=== PATIENT | female | born 1980 | race Caucasian/White ===

== ENCOUNTER 2016-12-18 19:06 | Observation (INO) | payer MEDICAID ==
[2016-12-18] MEDS ORDERED: ONDANSETRON DISINTEGRATING 4 MG TAB PO ONE (19:16)
[2016-12-18] MEDS ORDERED: NS 1,000 ML IV ONE ×2 (19:28)
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
[2016-12-18] MEDS ORDERED: ONDANSETRON 4 MG/2 ML VIAL ONE (19:37)
[2016-12-18 19:48] LABS: % IMMATURE GRANULYOCYTES 0.6 % (0.0-1.1); ABSOLUTE IMMATURE GRANULOCYTES 0.09 10^3/uL (0.00-0.10); ADD DIFF? NO; ADD MORPH? NO; ADD SCAN? NO; ATYPICAL LYMPHOCYTE FLAG 10 (0-99); FRAGMENT RBC FLAG 0 (0-99); HEMOGLOBIN 15.6 g/dL (12.6-16.3); LEFT SHIFT FLG 0 (0-99); LIPEMIA HEMOLYSIS FLAG 90 (0-99); MEAN CELL HEMOGLOBIN 30.9 pg (27.9-34.1); MEAN CELL HEMOGLOBIN CONCENTR. 34.7 g/dL (32.4-36.7); MEAN CELL VOLUME 89.1 fL (81.5-99.8); MEAN PLATELET VOLUME 8.6 fL (8.7-11.7); PLATELET CLUMPS FLAG 0 (0-99); PLATELET COUNT 449 10^3/uL (150-400); RED BLOOD CELL COUNT 5.05 10^6/uL (4.18-5.33)
[2016-12-18 19:57] LABS: ANION GAP 12 mEq/L (8-16); CALCIUM 8.6 mg/dL (8.5-10.4); CARBON DIOXIDE 20 mEq/l (22-31); CHLORIDE 109 mEq/L (97-110); CREATININE 0.7 mg/dL (0.6-1.0); GLOMERULAR FILTRATION RATE > 60; GLUCOSE 93 mg/dL (70-100); SODIUM 141 mEq/L (134-144)
[2016-12-18 20:43] LABS: COLOR YELLOW; LEUKOCYTE ESTERASE,URINE 3+ (NEGATIVE); NITRITE,URINE NEGATIVE (NEGATIVE)
[2016-12-18 20:49] LABS: BACTERIA TRACE /hpf (NONE SEEN); MUCUS TRACE /lpf (NONE-1+); RBC,URINE 15-25 /hpf (0-3); WBC,URINE 50-182 /hpf (0-3)
[2016-12-18] MEDS ORDERED: ONDANSETRON 4 MG/2 ML VIAL IVP ONE (20:50)
[2016-12-18] MEDS ORDERED: ONDANSETRON 4MG PREPACK#2 BTL TAKEHOME ONE (20:55)
[2016-12-18] MEDS ORDERED: METOCLOPRAMIDE 10 MG/2 ML VIAL IVP ONE (22:08)
[2016-12-18] MEDS ORDERED: METOCLOPRAMIDE 10 MG/2 ML VIAL IVP PRN (22:30)
[2016-12-18] MEDS ORDERED: TEMAZEPAM 15 MG CAP PO PRN (22:30)
[2016-12-18] MEDS ORDERED: PROMETHAZINE HCL 25 MG/ML INJ IVP PRN (22:30)
[2016-12-18] MEDS ORDERED: ONDANSETRON DISINTEGRATING 4 MG TAB PO PRN (22:30)
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
[2016-12-18] MEDS: NS 1,000 ML IV SCH (23:26)
[2016-12-19] MEDS: ONDANSETRON 4 MG/2 ML VIAL IVP PRN (03:21)
[2016-12-19] MEDS: ACETAMINOPHEN 325 MG TAB PO PRN ×2 (03:22→07:48)
[2016-12-19 05:16] LABS: % IMMATURE GRANULYOCYTES 0.6 % (0.0-1.1); ABSOLUTE IMMATURE GRANULOCYTES 0.06 10^3/uL (0.00-0.10); ADD DIFF? NO; ADD MORPH? NO; ADD SCAN? NO; ATYPICAL LYMPHOCYTE FLAG 10 (0-99); FRAGMENT RBC FLAG 0 (0-99); HEMATOCRIT 38.9 % (38.0-47.0); LEFT SHIFT FLG 0 (0-99); LIPEMIA HEMOLYSIS FLAG 80 (0-99); MEAN CELL HEMOGLOBIN CONCENTR. 33.4 g/dL (32.4-36.7); MEAN CELL VOLUME 92.8 fL (81.5-99.8); MEAN PLATELET VOLUME 8.6 fL (8.7-11.7); PLATELET CLUMPS FLAG 10 (0-99); PLATELET COUNT 317 10^3/uL (150-400); RED BLOOD CELL COUNT 4.19 10^6/uL (4.18-5.33); RED CELL DISTRIBUTION WIDTH 13.1 % (11.5-15.2)
[2016-12-19 05:26] LABS: ANION GAP 9 mEq/L (8-16); CALCIUM 7.2 mg/dL (8.5-10.4); CARBON DIOXIDE 18 mEq/l (22-31); CHLORIDE 111 mEq/L (97-110); CREATININE 0.7 mg/dL (0.6-1.0); GLOMERULAR FILTRATION RATE > 60; GLUCOSE 96 mg/dL (70-100); POTASSIUM 3.7 mEq/L (3.5-5.2); SODIUM 138 mEq/L (134-144)
[2016-12-19] MEDS ORDERED: SUMAtriptan 6 MG/0.5 ML VIAL SC ONE (12:16)
[2016-12-19] MEDS: NS 1,000 ML IV SCH (15:45)
--- NOTE | 2016-12-19 15:55 | HOSPPROG ---
Hospitalist Progress Note Assessment/Plan: 36 yo F w pyelo vs uti uti: ceftriaxone day 2 sepsis: no migraine: imitrex nausea: IV phenergan proph: add lmwh dispo: inpt Subjective: states still nauseated. eating crackers. c/o b/l back pain Objective: Vital Signs Temp Pulse Resp BP Pulse Ox 36.6 C 64 16 112/65 95 12/19/16 07:24 12/19/16 07:24 12/19/16 07:24 12/19/16 07:24 12/19/16 07:24 Laboratory Results 12/19/16 05:01 12/19/16 05:01 12/18/16 12/19/16 12/20/16 05:59 05:59 05:59 Intake Total 2100 Balance 2100 - Physical Exam Constitutional: no apparent distress, appears nourished Eyes: PERRL, anicteric sclera Ears, Nose, Mouth, Throat: moist mucous membranes, hearing normal Cardiovascular: regular rate and rhythym, no murmur, rub, or gallop Respiratory: no respiratory distress, no rales or rhonchi Gastrointestinal: normoactive bowel sounds, soft, non-tender abdomen, no palpable masses Genitourinary: no bladder fullness, No huffman in urethra Skin: warm, normal color Musculoskeletal: full muscle strength, no muscle tenderness ICD10 Worksheet Patient Problems: Problems Problem Status Onset Acute pyelonephritis Acute
[2016-12-19] MEDS ORDERED: PROMETHAZINE HCL 25 MG TAB PO PRN (15:56)
[2016-12-19] MEDS: FAMOTIDINE 20 MG TAB PO SCH (16:17)
[2016-12-19] MEDS: ENOXAPARIN 40 MG/0.4 ML SYR SC SCH (16:18)
[2016-12-19] MEDS: KETOROLAC 30 MG/1 ML SDV IVP PRN (18:11)
[2016-12-19] MEDS: HYDROmorphONE/DILAUDID 1 MG/ML SYR IVP PRN ×2 (18:32→22:39)
[2016-12-19] MEDS ORDERED: FAMOTIDINE 20 MG TAB PO SCH (21:00)
[2016-12-20] MEDS ORDERED: PROMETHAZINE HCL 12.5 MG SUPPR PR SCH
[2016-12-20] MEDS ORDERED: CEPHALEXIN 500 MG CAP PO SCH
[2016-12-20] MEDS ORDERED: PROMETHAZINE HCL 25 MG TAB PO SCH
[2016-12-20] MEDS ORDERED: FAMOTIDINE 20 MG TAB PO SCH
[2016-12-20] MEDS: KETOROLAC 30 MG/1 ML SDV IVP PRN ×2 (02:38→08:02)
[2016-12-20] MEDS: HYDROmorphONE/DILAUDID 1 MG/ML SYR IVP PRN (02:39)
[2016-12-20 03:43] VITALS: PULSE 55
[2016-12-20] MEDS: ONDANSETRON 4 MG/2 ML VIAL IVP PRN ×2 (03:44→08:02)
[2016-12-20 07:44] VITALS: BP 93/57; RESP 16; TEMP 97.3; O2SAT 94
[2016-12-20] MEDS: ENOXAPARIN 40 MG/0.4 ML SYR SC SCH (08:02)
[2016-12-20] MEDS: FAMOTIDINE 20 MG TAB PO SCH (08:03)
--- NOTE | 2016-12-20 09:05 | HOSPPROG ---
Hospitalist Progress Note Assessment/Plan: 36 yo F w pyelo vs uti uti: ceftriaxone day 3 sepsis: no migraine: imitrex nausea: IV phenergan proph: add lmwh home today > 30 minutes Subjective: afebrile Objective: Vital Signs Temp Pulse Resp BP Pulse Ox 36.3 C 55 L 16 93/57 L 94 12/20/16 07:40 12/20/16 03:39 12/20/16 07:40 12/20/16 07:40 12/20/16 07:40 Laboratory Results 12/19/16 05:01 12/19/16 05:01 12/19/16 12/20/16 12/21/16 05:59 05:59 05:59 Intake Total 2100 550 Output Total 200 Balance 2100 350 - Physical Exam Constitutional: no apparent distress, appears nourished Eyes: PERRL, anicteric sclera Ears, Nose, Mouth, Throat: moist mucous membranes, hearing normal Cardiovascular: regular rate and rhythym, no murmur, rub, or gallop Respiratory: no respiratory distress, no rales or rhonchi Gastrointestinal: normoactive bowel sounds, soft, non-tender abdomen Genitourinary: no bladder fullness, No huffman in urethra Skin: warm ICD10 Worksheet Patient Problems: Problems Problem Status Onset Acute pyelonephritis Acute
--- NOTE | 2016-12-20 18:59 | GDS ---
[f rep st] DISCHARGE SUMMARY DISCHARGE DIAGNOSES: 1. Pyelonephritis with polymicrobial urinary tract infection. 2. Nausea. 3. Migraine. Please see admission History and Physical by Dr. Geovanni Garcia. The patient presented with flank pain, nausea, vomiting, positive UA. She received ceftriaxone. Urine culture grew out multiple ba cteria without a predominant organism. The patient had stable vitals, is afebrile, and is discharge d home to complete a 10 day course of antibiotics with Keflex. She has no drug allergies. She was g iven prescriptions for Phenergan and famotidine. /[id number]/MODL
== END 2016-12-20 15:00 | disposition home or self-care (01) ==
LOC: F3E 22:55
PROVIDERS: ADMIT Student in an Organized Health Care Education/Training Program; ATTEND Internal Medicine
DX: N10 Acute pyelonephritis (principal); R11.0 Nausea; G43.909 Migraine, unspecified, not intractable, without status migrainosus
CPT/HCPCS: 96361; 96365; 96375; 99285; G0378; J0696; J1170; J1650; J1885; J2405; J2550; J2765; J3030

== ENCOUNTER 2016-12-23 21:43 | Emergency (ER) | payer MEDICAID ==
[2016-12-23 21:55] VITALS: BP 120/96; PULSE 81; RESP 16; TEMP 97.5; O2SAT 97
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
[2016-12-23] MEDS ORDERED: NS 1,000 ML IV ONE (22:05)
[2016-12-23] MEDS ORDERED: DEXAMETHASONE 10 MG/ML VIAL IVP ONE (22:05)
[2016-12-23] MEDS ORDERED: METOCLOPRAMIDE 10 MG/2 ML VIAL IVP ONE (22:05)
[2016-12-23 22:33] LABS: ETHANOL SERUM < 10 mg/dL (0-10)
== END 2016-12-23 22:31 | disposition home or self-care (01) ==
DX: G43.009 Migraine without aura, not intractable, without status migrainosus (principal); E86.9 Volume depletion, unspecified; J45.909 Unspecified asthma, uncomplicated; F17.200 Nicotine dependence, unspecified, uncomplicated
CPT/HCPCS: 96374; G0480; J1100; J1200; J2765

== ENCOUNTER 2017-01-23 21:22 | Emergency (ER) | payer MEDICAID ==
[2017-01-23 21:27] VITALS: BP 140/89; PULSE 88; RESP 16; TEMP 98.6; O2SAT 97
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
[2017-01-23] MEDS ORDERED: IBUPROFEN 600 MG TAB PO ONE ×2 (22:09→22:12)
== END 2017-01-23 23:00 | disposition home or self-care (01) ==
LOC: EEVIPCON 21:22
DX: R51 Headache (principal); J45.909 Unspecified asthma, uncomplicated; Z87.891 Personal history of nicotine dependence

== ENCOUNTER 2017-01-29 01:31 | Emergency (ER) | payer MEDICAID ==
[2017-01-29 01:39] VITALS: RESP 16; TEMP 98.6
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
[2017-01-29] MEDS ORDERED: PHENAZOPYRIDINE HCL 200 MG TAB ONE (02:25)
[2017-01-29] MEDS ORDERED: PHENAZOPYRIDINE HCL 200 MG TAB PO ONE (02:27)
[2017-01-29 03:17] LABS: COLOR YELLOW; LEUKOCYTE ESTERASE,URINE 1+ (NEGATIVE); NITRITE,URINE NEGATIVE (NEGATIVE)
[2017-01-29 03:29] LABS: BACTERIA TRACE /hpf (NONE SEEN); MUCUS 1+ /lpf (NONE-1+); RBC,URINE OCCASIONAL /hpf (0-3)
[2017-01-29] MEDS ORDERED: metroNIDAZOLE 500 MG TAB PO ONE (04:06)
[2017-01-29] MEDS ORDERED: CEPHALEXIN 500 MG CAP PO ONE (04:06)
[2017-01-29] MEDS ORDERED: CEPHALEXIN 500MG PREPACK#4 BTL TAKEHOME ONE (04:06)
[2017-01-29 06:06] VITALS: O2SAT 96
[2017-01-29 06:19] VITALS: BP 122/77; PULSE 69
[2017-01-29 12:14] LABS: CHLAMYDIA AMPLIFICATION GENPRB NEGATIVE (NEGATIVE)
== END 2017-01-29 06:18 | disposition home or self-care (01) ==
PROC: 0T9B70Z Drainage of Bladder with Drainage Device, Via Natural or Artificial Opening (ICD-10-PCS; principal; 2017-01-29)
DX: N30.00 Acute cystitis without hematuria (principal); B96.89 Other specified bacterial agents as the cause of diseases classified elsewhere; N76.0 Acute vaginitis; J45.909 Unspecified asthma, uncomplicated; Z87.891 Personal history of nicotine dependence

== ENCOUNTER 2017-02-13 06:03 | Emergency (ER) | payer MEDICAID ==
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
[2017-02-13 06:22] VITALS: RESP 18; O2SAT 96
[2017-02-13 09:48] VITALS: BP 122/65; PULSE 81; TEMP 98.4
== END 2017-02-13 09:46 | disposition home or self-care (01) ==
LOC: EDUNIT#
DX: S19.9XXA Unspecified injury of neck, initial encounter (principal); Y04.8XXA Assault by other bodily force, initial encounter; Z87.891 Personal history of nicotine dependence